=== PATIENT | female | born 1975 | race Hispanic/Latino ===

== ENCOUNTER 2017-02-16 13:52 | Inpatient (IN) | payer OTHER ==
[2017-02-16] MEDS ORDERED: Iohexol 240 (50 ml) PO ONE (14:17)
[2017-02-16] MEDS ORDERED: Lactated Ringer's 1,000 ML IV STA (14:21)
[2017-02-16] MEDS ORDERED: Iohexol 240 (50 ml) ONE (14:29)
[2017-02-16] MEDS ORDERED: Dextrose 5%/Lactated Ringer's 1,000 ML IV ONE (14:30)
--- NOTE | 2017-02-16 14:30 | ED PDOC ---
HPI: Abdomen Time Seen by Provider: 02/16/17 14:07 Chief Complaint (Nursing): Female Genitourinary Chief Complaint (Provider): abdominal pain History Per: Patient History/Exam Limitations: no limitations Onset/Duration Of Symptoms: Days (2), Gradual, Persistent Current Symptoms Are (Timing): Still Present Location Of Pain/Discomfort: Suprapubic Quality Of Discomfort: Cramping Associated Symptoms: Fever, Nausea, Loss Of Appetite. denies: Chills, Vomiting , Urinary Symptoms Exacerbating Factors: None Alleviating Factors: None Additional Complaint(s): Has been having vaginal bleeding since mid-December and also under recenterer care. However pain seemed to worsen over the last 2 days and advised to come to ER for further evaluation. Bleeding ~4-6 pad/day, waxes and wanes since December but also increased in last 2 days. No relief of pain. No urinary symptoms, diarrhea or constipation. No bleeding elsewhere. No lightheadedness. Past Medical History Reviewed: Historical Data, Nursing Documentation, Vital Signs Vital Signs: Last Vital Signs Temp 98 F 02/16/17 14:01 Pulse 112 H 02/16/17 14:01 Resp 18 02/16/17 14:01 BP 142/94 H 02/16/17 14:01 Pulse Ox 100 02/16/17 14:01 - Medical History Other PMH: Endometriosis - Surgical History Surgical History: Cholecystectomy (07/04) - Family History Family History: States: No Known Family Hx - Social History Current smoker - smoking cessation education provided: No Drugs: Denies - Allergies Allergies/Adverse Reactions: Allergies Allergy/AdvReac Type Severity Reaction Status Date / Time No Known Allergies Allergy Verified 02/16/17 14:00 Review of Systems ROS Statement: Except As Marked, All Systems Reviewed And Found Negative (and as per HPI) Gastrointestinal: Positive for: Nausea, Abdominal Pain. Negative for: Vomiting , Diarrhea, Constipation, Melena, Hematochezia Genitourinary Female: Positive for: Vaginal Bleeding, Pelvic Pain Physical Exam - Reviewed Nursing Documentation Reviewed: Yes Vital Signs Reviewed: Yes - Physical Exam Appears: Positive for: Non-toxic, In Acute Distress Head Exam: Positive for: ATRAUMATIC, NORMOCEPHALIC Skin: Positive for: Warm, Dry. Negative for: Pallor Eye Exam: Positive for: EOMI, PERRL ENT: Negative for: Pharyngeal Erythema, Tonsillar Exudate Neck: Positive for: Painless ROM, Supple Cardiovascular/Chest: Positive for: Regular Rate, Rhythm, Chest Non Tender. Negative for: Murmur Respiratory: Positive for: Normal Breath Sounds. Negative for: Respiratory Distress Gastrointestinal/Abdominal: Positive for: Bowel Sounds, Soft, Tenderness (BLQ and suprapubic). Negative for: Mass, Distended, Guarding, Rebound Back: Positive for: Normal Inspection. Negative for: L CVA Tenderness, R CVA Tenderness Extremity: Positive for: Normal ROM. Negative for: Deformity Neurologic/Psych: Positive for: Alert. Negative for: Motor/Sensory Deficits - ECG O2 Sat by Pulse Oximetry: 100 Pulse Ox Interpretation: Normal - Progress ED Course And Treament: DW Dr Martin Surgery resident who had d/w Dr Ragland, and Dr Shirley. Pt to have CT scan abd/pelv PO/IV contrast for possible appendicitis, colitis, proctitis, or other intestinal etiology for pain. Disposition - Clinical Impression Clinical Impression: Intractable abdominal pain - Disposition Disposition Time: 14:35 Condition: FAIR - Pt Status Changed To: Hospital Disposition Of: Inpatient - Admit Certification Admit to Inpatient:: After my assessment, the patient will require hospitalization for at least two midnights. This is because of the severity of symptoms shown, intensity of services needed, and/or the medical risk in this patient being treated as an outpatient. - POA Present On Arrival: None
[2017-02-16 14:47] LABS: BASO # 0.1 K/uL (0.0-0.2); EOS % 0.2 % (0.0-4.0); HEMATOCRIT 35.4 % (34.0-47.0); LYMPH # 2.6 K/uL (1.0-4.3); LYMPH % 32.8 % (20.0-40.0); MEAN CELL VOLUME 84.5 fl (81.0-99.0); MEAN CORPUSCULAR HEMOGLOBIN 28.3 pg (27.0-31.0); MEAN CORPUSCULAR HGB CONC 33.5 g/dL (33.0-37.0); MEAN PLATELET VOLUME 10.5 fl (7.2-11.7); MONO # 0.5 K/uL (0.0-0.8); MONO % 6.9 % (0.0-10.0); NEUT # 4.7 K/uL (1.8-7.0); NEUT % 59.1 % (50.0-75.0); RED CELL DISTRIBUTION WIDTH 12.9 % (11.5-14.5); WHITE BLOOD COUNT 7.9 K/uL (4.8-10.8)
[2017-02-16 14:55] LABS: RBC URINE 198 /hpf (0-3); URINE BACTERIA RARE (<OCC); URINE BILIRUBIN NEGATIVE (NEGATIVE); URINE COLOR YELLOW (YELLOW); URINE GLUCOSE (UA) NEG (Normal); URINE KETONE NEGATIVE (NEGATIVE); URINE LEUKOCYTE ESTERASE NEG Leu/uL (Negative); URINE PROTEIN NEGATIVE (NEGATIVE); URINE UROBILINOGEN 0.2-1.0 mg/dL (0.2-1.0); WBC URINE 2 /hpf (0-5)
[2017-02-16 15:02] LABS: PARTIAL THROMBOPLASTIN TIME 26.4 Seconds (25.6-37.1)
[2017-02-16 15:04] LABS: URINE BLOOD LARGE (NEGATIVE)
[2017-02-16 15:15] LABS: GLUCOSE,RANDOM 134 mg/dL (65-105)
[2017-02-16 15:16] LABS: ALB/GLOB RATIO 1.3 (1.0-2.1); ALKALINE PHOSPHATASE 36 U/L (38-126); ALT/SGPT 28 U/L (9-52); AST/SGOT 35 U/L (14-36); BILIRUBIN,TOTAL 0.3 mg/dl (0.2-1.3); BLOOD UREA NITROGEN 12 mg/dl (7-17); CALCIUM 9.6 mg/dL (8.4-10.2); CARBON DIOXIDE 22 mmol/L (22-30); CHLORIDE 108 mmol/L (98-107); GFR AFRICAN-AMERICAN > 60; POTASSIUM 3.7 MMOL/L (3.6-5.0); SODIUM 144 mmol/l (132-148); TOTAL PROTEIN 7.5 G/DL (6.3-8.2)
[2017-02-16] MEDS ORDERED: Peg-Electrolyte Oral Soln 4L (Golytely) PO ONE (15:30)
--- NOTE | 2017-02-16 16:29 | CP.PCM.HP ---
History of Present Illness - History of Present Illness History of Present Illness: Surgery: Dr. Ragland CC: worsening pelvic/abdominal pain HPI: Patient is a 41 y/o female w/ who presents w/ acute worsening of abdominal pain over the past 2 days. States she's had abdominal/pelvic pain in the past, for approximately 1 year time, however 2 days ago the pain became severe in nature and unrelenting. She reports consistent vaginal bleeding over the past year however she noticed that over the past couple of days the bleeding has increased. She is followed by [facility] as outpatient and states she has been consistent with her oral contraceptives which usually keep the bleeding to a minimum; however, bleeding has increased with large clots. She denies fever, chills. She reports nausea but no vomiting. She reports normal bowel movements. She denies vaginal discharge, dysuria, or hematuria. PMH: endometriosis, gallbladder disease PSH: dat morales Jun 2016 Social: , 2 children. Denies etoh, tobacco, or drug abuse Present on Admission - Present on Admission Any Indicators Present on Admission: No Review of Systems - Constitutional Constitutional: absent: Anorexia, Chills, Fever - EENT Eyes: absent: Blurred Vision, Change in Vision Nose/Mouth/Throat: absent: Nasal Congestion, Nose Pain - Cardiovascular Cardiovascular: absent: Chest Pain, Diaphoresis, Dyspnea - Respiratory Respiratory: absent: Cough, Wheezing - Gastrointestinal Gastrointestinal: Abdominal Pain, Nausea. absent: Constipation, Diarrhea, Vomiting - Genitourinary Genitourinary: absent: Dysuria, Pyuria - Reproductive: Female Reproductive:Female: Heavy Menses. absent: Vaginal Discharge, Vaginal Odor - Musculoskeletal Musculoskeletal: absent: Numbness, Tingling - Integumentary Integumentary: absent: Wounds, Jaundice - Neurological Neurological: absent: Dizziness, Weakness - Psychiatric Psychiatric: absent: Anxiety, Depression - Endocrine Endocrine: absent: Polydipsia, Polyphagia - Hematologic/Lymphatic Hematologic: absent: Easy Bruising Past Patient History - Past Social History Drugs: Denies - PSYCHIATRIC Hx Substance Use: No - SURGICAL HISTORY Hx Cholecystectomy: Yes (07/04) - ANESTHESIA Hx Anesthesia: No Meds Allergies/Adverse Reactions: Allergies Allergy/AdvReac Type Severity Reaction Status Date / Time No Known Allergies Allergy Verified 02/16/17 14:00 Physical Exam - Constitutional Appears: Non-toxic, No Acute Distress - Head Exam Head Exam: ATRAUMATIC, NORMOCEPHALIC - Eye Exam Eye Exam: EOMI, Normal appearance - ENT Exam ENT Exam: Mucous Membranes Moist - Respiratory Exam Respiratory Exam: NORMAL BREATHING PATTERN. absent: Respiratory Distress - Cardiovascular Exam Cardiovascular Exam: REGULAR RHYTHM. absent: Tachycardia - GI/Abdominal Exam GI & Abdominal Exam: Soft, Tenderness (suprapubic/lower abdominal tenderness). absent: Distended, Firm, Rebound Additional comments: fullness palpated suprapubic - Extremities Exam Extremities exam: Positive for: normal inspection. Negative for: calf tenderness - Neurological Exam Neurological exam: Alert, Oriented x3 - Psychiatric Exam Psychiatric exam: Normal Affect, Normal Mood - Skin Skin Exam: Dry, Normal Color Results - Vital Signs Recent Vital Signs: Last Vital Signs Temp 98 F 02/16/17 14:01 Pulse 112 H 02/16/17 14:01 Resp 18 02/16/17 14:01 BP 142/94 H 02/16/17 14:01 Pulse Ox 100 02/16/17 14:35 - Labs Result Diagrams: 02/16/17 14:40 02/16/17 14:40 Labs: Laboratory Results - last 24 hr 02/16/17 02/16/17 02/16/17 14:40 14:40 14:40 WBC 7.9 RBC 4.19 Hgb 11.9 L Hct 35.4 MCV 84.5 MCH 28.3 MCHC 33.5 RDW 12.9 Plt Count 231 MPV 10.5 Neut % (Auto) 59.1 Lymph % (Auto) 32.8 [place] % (Auto) 6.9 Eos % (Auto) 0.2 Baso % (Auto) 1.0 Neut # 4.7 Lymph # 2.6 [place] # 0.5 Eos # 0.0 Baso # 0.1 PT 11.8 INR 1.1 APTT 26.4 Sodium 144 Potassium 3.7 Chloride 108 H Carbon Dioxide 22 Anion Gap 18 BUN 12 Creatinine 0.7 Est GFR ( Amer) > 60 Est GFR (Non-Af Amer) > 60 Random Glucose 134 H Calcium 9.6 Total Bilirubin 0.3 AST 35 ALT 28 Alkaline Phosphatase 36 L Total Protein 7.5 Albumin 4.3 Globulin 3.2 Albumin/Globulin Ratio 1.3 Urine Color Urine Clarity Urine pH Ur Specific [place] Urine Protein Urine Glucose (UA) Urine Ketones Urine Blood Urine Nitrate Urine Bilirubin Urine Urobilinogen Ur Leukocyte Esterase Urine RBC (Auto) Urine Microscopic WBC Ur Squamous Epith Cells Urine Bacteria Blood Type Antibody Screen BBK History Checked 02/16/17 02/16/17 14:40 14:40 WBC RBC Hgb Hct MCV MCH MCHC RDW Plt Count MPV Neut % (Auto) Lymph % (Auto) [place] % (Auto) Eos % (Auto) Baso % (Auto) Neut # Lymph # [place] # Eos # Baso # PT INR APTT Sodium Potassium Chloride Carbon Dioxide Anion Gap BUN Creatinine Est GFR ( Amer) Est GFR (Non-Af Amer) Random Glucose Calcium Total Bilirubin AST ALT Alkaline Phosphatase Total Protein Albumin Globulin Albumin/Globulin Ratio Urine Color Yellow Urine Clarity Slighty-cloudy Urine pH 6.0 Ur Specific [place] 1.017 Urine Protein Negative Urine Glucose (UA) Neg Urine Ketones Negative Urine Blood Large Urine Nitrate Negative Urine Bilirubin Negative Urine Urobilinogen 0.2-1.0 Ur Leukocyte Esterase Neg Urine RBC (Auto) 198 H Urine Microscopic WBC 2 Ur Squamous Epith Cells 1 Urine Bacteria Rare Blood Type A POSITIVE Antibody Screen Negative BBK History Checked No verified bt Assessment & Plan - Assessment and Plan (Free Text) Assessment: 41 y/o female w/ abdominal pain and vaginal bleeding Plan: -f/u CT abd/pelvis w/ contrast -NPO -IVFs -am labs -pain control -further recs pending results -OOB -IS use -SCDs/Protonix -type/cross -[facility] consult -D/W Dr. Ellyn Cody PGY3
[2017-02-16] MEDS ORDERED: Iohexol 300 100 ML IJ ONE (17:01)
[2017-02-16] MEDS ORDERED: Sodium Chloride 0.9% 50 ML IV ONE (17:01)
--- NOTE | 2017-02-16 18:23 | CT ---
PROCEDURE: CT Abdomen and Pelvis with contrast HISTORY: Abdominal pain, vaginal pain. By history, negative test (concurrent with this examination). COMPARISON: None. TECHNIQUE: Contrast dose: 95 cc Omnipaque 300 Radiation dose: Total exam DLP = 569.03 mGy-cm. This CT exam was performed using one or more of the following dose reduction techniques: Automated exposure control, adjustment of the mA and/or kV according to patient size, and/or use of iterative reconstruction technique. FINDINGS: LOWER THORAX: Unremarkable. LIVER: Unremarkable. No gross lesion within the liver. Mild hepatic steatosis. . Mild ductal dilatation likely reflects post cholecystectomy state. GALLBLADDER AND BILE DUCTS: Status post cholecystectomy. No abnormality is seen in the gallbladder fossa. PANCREAS: Unremarkable. No gross lesion or ductal dilatation. SPLEEN: Unremarkable. ADRENALS: Unremarkable. No mass. KIDNEYS AND URETERS: Unremarkable. No hydronephrosis. No solid mass. VASCULATURE: Unremarkable. No aortic aneurysm. BOWEL: Constipation without fecal impaction or obstruction. APPENDIX: Normal appendix. PERITONEUM: Unremarkable. No free fluid. No free air. LYMPH NODES: Unremarkable. No enlarged lymph nodes. BLADDER: Unremarkable. REPRODUCTIVE: Anteverted uterus. Variable contrast enhancement of the anteverted uterus. This may represent myomatous process ease. Cystic adnexal masses occupying the large segments of the true pelvis. The cystic mass to the left of the midline measures 5.9 cm. The cystic mass or masses to the right of the midline measure 4.1 x 6.6 cm. BONES: No acute fracture. Mild scoliosis without appreciable secondary degenerative change OTHER FINDINGS: None. IMPRESSION: Multiple cystic masses in the pelvis described in greater detail above. Pelvic ultrasound strongly recommended given clinical presentation, symptomatology.
[2017-02-17 06:32] LABS: BASO # 0.1 K/uL (0.0-0.2); BASO % 0.8 % (0.0-2.0); EOS % 0.3 % (0.0-4.0); HEMATOCRIT 32.5 % (34.0-47.0); LYMPH # 2.8 K/uL (1.0-4.3); LYMPH % 36.8 % (20.0-40.0); MEAN CELL VOLUME 85.4 fl (81.0-99.0); MEAN CORPUSCULAR HEMOGLOBIN 27.9 pg (27.0-31.0); MEAN CORPUSCULAR HGB CONC 32.7 g/dL (33.0-37.0); MEAN PLATELET VOLUME 10.7 fl (7.2-11.7); MONO # 0.6 K/uL (0.0-0.8); MONO % 7.5 % (0.0-10.0); NEUT # 4.2 K/uL (1.8-7.0); NEUT % 54.6 % (50.0-75.0); RED CELL DISTRIBUTION WIDTH 12.7 % (11.5-14.5); WHITE BLOOD COUNT 7.7 K/uL (4.8-10.8)
[2017-02-17 06:34] LABS: ALB/GLOB RATIO 1.4 (1.0-2.1); ALKALINE PHOSPHATASE 33 U/L (38-126); ALT/SGPT 35 U/L (9-52); AST/SGOT 22 U/L (14-36); BILIRUBIN,TOTAL 0.4 mg/dl (0.2-1.3); BLOOD UREA NITROGEN 7 mg/dl (7-17); CALCIUM 8.9 mg/dL (8.4-10.2); CARBON DIOXIDE 25 mmol/L (22-30); CHLORIDE 107 mmol/L (98-107); GFR AFRICAN-AMERICAN > 60; GLUCOSE,RANDOM 108 mg/dL (65-105); POTASSIUM 3.5 MMOL/L (3.6-5.0); SODIUM 145 mmol/l (132-148); TOTAL PROTEIN 6.7 G/DL (6.3-8.2)
[2017-02-17] MEDS ORDERED: Lactated Ringer's 1,000 ML IV SCH ×2 (09:00→19:00)
[2017-02-17] MEDS ORDERED: Lactated Ringer's 500 ML IV SCH (12:00)
--- NOTE | 2017-02-17 12:39 | RAD ---
PROCEDURE: CHEST RADIOGRAPH, 1 VIEW HISTORY: pre-op eval COMPARISON: None available. FINDINGS: LUNGS: Clear. PLEURA: No pneumothorax or pleural fluid seen. CARDIOVASCULAR: Normal. OSSEOUS STRUCTURES: No significant abnormalities. VISUALIZED UPPER ABDOMEN: Normal. OTHER FINDINGS: None. IMPRESSION: No active disease.
[2017-02-17] MEDS ORDERED: Propofol 10 mg/ml Inj (20 ML) ONE (14:14)
[2017-02-17] MEDS ORDERED: ePHEDrine 50 mg/ml Inj ONE (14:14)
[2017-02-17] MEDS ORDERED: Succinylcholine 200 mg/10 ml Inj IV ONE (14:15)
[2017-02-17] MEDS ORDERED: Rocuronium 10 mg/ml (5 ml) ONE ×2 (14:15→16:01)
[2017-02-17] MEDS ORDERED: Bupivacaine 0.5% Inj(30mL) ONE (14:16)
[2017-02-17] MEDS ORDERED: Midazolam 2 MG/2 ML VIAL ONE (14:54)
[2017-02-17] MEDS ORDERED: Lactated Ringer's 1,000 ML IV ONE ×2 (14:55)
[2017-02-17] MEDS ORDERED: Sodium Chloride 0.9% 1,000 ML IV ONE ×2 (14:55→16:00)
[2017-02-17] MEDS ORDERED: Dexamethasone 4 mg/1 ml ONE (15:24)
[2017-02-17] MEDS ORDERED: Bupivacaine 0.5% 50 ML IJ ONE ×2 (15:28)
[2017-02-17] MEDS ORDERED: Lactated Ringer's 500 ML IV ONE (16:40)
[2017-02-17] MEDS ORDERED: Cellulose Hemostat 2X3 Sheet TP ONE (17:51)
[2017-02-17] MEDS ORDERED: HEMOSTATIC MATRIX 10 ML DIS.NEEDLE TOP ONE (17:52)
[2017-02-17] MEDS ORDERED: Neostigmine Methylsulfate 3mg/3ml Syringe IV ONE (18:08)
[2017-02-17] MEDS ORDERED: Desflurane Inhalation Anesthetic Liq (240 ml) ONE (18:19)
--- NOTE | 2017-02-17 18:41 | PCM.SURG1 ---
Surgeon's Initial Post Op Note - Surgeon's Notes Surgeon: Dr. Shirley, Dr. 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
[2017-02-17] MEDS ORDERED: HYDROmorphone 0.5 mg/0.5 ml ISec IVP PRN (18:49)
[2017-02-17] MEDS ORDERED: Naloxone 0.4 mg/ml Inj (Adult) IVP PRN (18:51)
[2017-02-17] MEDS ORDERED: DiphenhydrAMINE 50 mg/ml Inj IVP PRN (18:51)
--- NOTE | 2017-02-17 20:43 | CP.PCM.CON ---
History of Present Illness - History of Present Illness History of Present Illness: CC: Abdominal pain This is a 41-year-old female with a past medical history significant for endometriosis and gallbladder disease status post laparoscopic cholecystectomy on June 2016. She has been having vaginal bleeding since mid December along with 1 year of progressively worsening abdominal pain described as sharp and at times severe. Her pain seemed to worsen over the last 2 days and she was advised to come to the emergency department for further evaluation. The patient was worked up and found to have endometriosis. She was subsequently taken to the OR today 02/17/2017 for excision of retroperitoneal and pelvic endometriosis along with rectal endometriosis excision, and excision of sigmoid endometriosis. There is also excision of the left endometrioma of the left ovary. The patient was admitted to the ICU postoperatively after the procedure. She is on a Dilaudid IT ENGINEER for pain control as per anesthesia. She is hemodynamically stable at this time. Review of Systems - Review of Systems Systems not reviewed;Unavailable: Other (Sedated on dilaudid on IT ENGINEER pump) Past Patient History - Infectious Disease Hx of Infectious Diseases: None - Past Medical History & Family History Past Medical History?: Yes Past Family History: Reviewed and not pertinent - Past Social History Smoking Status: Never Smoked - MUSCULOSKELETAL/RHEUMATOLOGICAL Hx Falls: No - GASTROINTESTINAL Other/Comment: Gluten intolerance - GENITOURINARY/GYNECOLOGICAL Other/Comment: Endometriosis - PSYCHIATRIC Hx Anxiety: Yes Hx Substance Use: No - SURGICAL HISTORY Hx Cholecystectomy: Yes (07/04) Other/Comment: Lasex Sx to eyes - ANESTHESIA Hx Anesthesia: Yes Hx Anesthesia Reactions: No Meds Allergies/Adverse Reactions: Allergies Allergy/AdvReac Type Severity Reaction Status Date / Time No Known Allergies Allergy Verified 02/16/17 14:00 - Medications Medications: Current Medications Diphenhydramine HCl (Benadryl) 25 mg IVP Q6 PRN PRN Reason: Itching / Pruritus Enoxaparin Sodium (Lovenox) 40 mg SC DAILY [facility] PRN Reason: Protocol Hydromorphone HCl (Dilaudid) 0.5 mg IVP Q5M PRN PRN Reason: Pain, moderate (4-7) Stop: 02/17/17 20:49 Last Admin: 02/17/17 19:00 Dose: 0.5 mg Hydromorphone HCl (Dilaudid 0.2 Mg/Ml Nozzle Cement Sprayer Helper) 0 mg IV PRN PRN; Protocol PRN Reason: Pain, moderate (4-7) Last Admin: 02/17/17 19:30 Dose: 0.2 mg Lactated Ringer's (Lactated Ringer's) 1,000 mls @ 100 mls/hr IV .Q10H [facility] Lactated Ringer's (Lactated Ringer's 500ml) 500 mls @ 100 mls/hr IV .Q5H [facility] Morphine Sulfate (Morphine) 4 mg IVP Q4 PRN PRN Reason: Pain, severe (8-10) Morphine Sulfate (Morphine) 2 mg IVP Q4 PRN PRN Reason: Pain, moderate (4-7) Naloxone HCl (Narcan) 0.1 mg IVP Q2M PRN PRN Reason: Excess sedation Ondansetron HCl (Zofran Inj) 4 mg IVP Q4 PRN PRN Reason: Nausea/Vomiting Ondansetron HCl (Zofran Inj) 4 mg IVP Q8 PRN PRN Reason: Nausea/Vomiting Pantoprazole Sodium (Protonix Inj) 40 mg IVP DAILY [facility] Last Admin: 02/17/17 09:50 Dose: 40 mg Physical Exam - Additional Findings Additional findings: EXAM: Vitals stable and reviewed GEN: WDWN, alert, cooperative HEENT: NCAT, PERRL, EOMI Neck: supple, no lymphadenopathy CARDIO: +S1S2, RRR, NO M/R/G LUNG: CTAB, NO W/R/R ABD: soft, NT, ND, no masses, no HSM EXT: no edema, pedal pulses Neuro: arousable to voice, sedated, unable to perform full exam Results - Vital Signs Recent Vital Signs: Last Vital Signs Temp 98.2 F 02/17/17 20:02 Pulse 98 H 02/17/17 20:02 Resp 12 02/17/17 20:02 BP 116/63 02/17/17 20:02 Pulse Ox 100 02/17/17 20:02 - Labs Result Diagrams: 02/17/17 05:55 02/17/17 05:55 Labs: Laboratory Results - last 24 hr 02/16/17 02/17/17 02/17/17 14:40 05:55 05:55 WBC 7.7 RBC 3.80 Hgb 10.6 L Hct 32.5 L MCV 85.4 MCH 27.9 MCHC 32.7 L RDW 12.7 Plt Count 213 MPV 10.7 Neut % (Auto) 54.6 Lymph % (Auto) 36.8 [place] % (Auto) 7.5 Eos % (Auto) 0.3 Baso % (Auto) 0.8 Neut # 4.2 Lymph # 2.8 [place] # 0.6 Eos # 0.0 Baso # 0.1 PT INR APTT Sodium 145 Potassium 3.5 L Chloride 107 Carbon Dioxide 25 Anion Gap 17 BUN 7 Creatinine 0.7 Est GFR ( Amer) > 60 Est GFR (Non-Af Amer) > 60 Random Glucose 108 H Calcium 8.9 Total Bilirubin 0.4 AST 22 ALT 35 Alkaline Phosphatase 33 L Total Protein 6.7 Albumin 3.8 Globulin 2.8 Albumin/Globulin Ratio 1.4 Blood Type A POSITIVE Antibody Screen Negative Crossmatch See Detail BBK History Checked No verified bt 02/17/17 05:55 WBC RBC Hgb Hct MCV MCH MCHC RDW Plt Count MPV Neut % (Auto) Lymph % (Auto) [place] % (Auto) Eos % (Auto) Baso % (Auto) Neut # Lymph # [place] # Eos # Baso # PT 12.8 INR 1.2 APTT 26.0 Sodium Potassium Chloride Carbon Dioxide Anion Gap BUN Creatinine Est GFR ( Amer) Est GFR (Non-Af Amer) Random Glucose Calcium Total Bilirubin AST ALT Alkaline Phosphatase Total Protein Albumin Globulin Albumin/Globulin Ratio Blood Type Antibody Screen Crossmatch BBK History Checked Assessment & Plan - Assessment and Plan (Free Text) Assessment: Assessment - S/p endometriomal excision, hemodynamically stable in the ICU Plan - Monitor patient overnight in the ICU - Vitals as per protocol - Continue LR at 100 cc/hour - Continue Dilaudid IT ENGINEER pump as per anesthesia - Benadryl PRN for pruritis - Zofran PRN N/V - Naloxone 0.1 mg IVP q2m PRN excess sedation - Thank you for the consultation
[2017-02-17] MEDS ORDERED: ceFAZolin 1 GM in Sodium Chloride 0.9% 100 ML IVPB SCH (21:00)
[2017-02-17] MEDS: Lactated Ringer's 500 ML IV SCH (21:00)
--- NOTE | 2017-02-18 01:24 | CARD ---
APPROVED REPORT EKG Measurement Heart [id number] <Conclusion> Normal sinus rhythm Normal ECG
[2017-02-18] MEDS: Lactated Ringer's 500 ML IV SCH (02:00)
[2017-02-18] MEDS: ceFAZolin 1 GM in Sodium Chloride 0.9% 100 ML IVPB SCH ×2 (02:59→15:02)
[2017-02-18 05:22] LABS: BASO % 0.1 % (0.0-2.0); LYMPH # 0.9 K/uL (1.0-4.3); MEAN CELL VOLUME 85.6 fl (81.0-99.0); MEAN CORPUSCULAR HEMOGLOBIN 28.1 pg (27.0-31.0); MEAN CORPUSCULAR HGB CONC 32.8 g/dL (33.0-37.0); MEAN PLATELET VOLUME 10.6 fl (7.2-11.7); MONO # 0.9 K/uL (0.0-0.8); MONO % 6.9 % (0.0-10.0); NEUT # 10.8 K/uL (1.8-7.0); PLATELET COUNT 179 K/uL (130-400); RED CELL DISTRIBUTION WIDTH 12.7 % (11.5-14.5); WHITE BLOOD COUNT 12.5 K/uL (4.8-10.8)
[2017-02-18 05:24] LABS: ALKALINE PHOSPHATASE 27 U/L (38-126); ALT/SGPT 30 U/L (9-52); AST/SGOT 25 U/L (14-36); BILIRUBIN,TOTAL 0.2 mg/dl (0.2-1.3); BLOOD UREA NITROGEN 8 mg/dl (7-17); CALCIUM 8.1 mg/dL (8.4-10.2); CARBON DIOXIDE 21 mmol/L (22-30); CHLORIDE 109 mmol/L (98-107); GFR AFRICAN-AMERICAN > 60; GLUCOSE,RANDOM 142 mg/dL (65-105); POTASSIUM 3.7 MMOL/L (3.6-5.0); SODIUM 142 mmol/l (132-148); TOTAL PROTEIN 5.5 G/DL (6.3-8.2)
[2017-02-18 06:05] LABS: ALB/GLOB RATIO 1.2 (1.0-2.1)
[2017-02-18] MEDS ORDERED: Petrolatum UD PAK TOP PRN (08:36)
[2017-02-18] MEDS: Enoxaparin 40 mg Syringe SC SCH (08:42)
[2017-02-18 08:59] LABS: NEUTROPHIL 87 % (42-75); TOTAL CELLS COUNTED 100
[2017-02-18 09:00] LABS: LARGE PLATELETS PRESENT
--- NOTE | 2017-02-18 10:14 | CP.PCM.PN ---
Subjective - Date & Time of Evaluation Date of Evaluation: 02/18/17 Time of Evaluation: 07:15 - Subjective Subjective: General Surgery Pt S&E, NAEO. Afebrile. Pain controlled with meds. Good urine output. No N/V, no BM/flatus. Some mild tachycardia (100-110s) sporadically during night, otherwise VSS. Objective - Vital Signs/Intake and Output Vital Signs (last 24 hours): Temp Pulse Resp BP Pulse Ox 98.8 F 111 H 18 135/81 100 02/18/17 08:00 02/18/17 08:00 02/18/17 08:00 02/18/17 08:00 02/18/17 08:00 Intake and Output: 02/18/17 02/18/17 06:59 18:59 Intake Total 925 200 Output Total 225 Balance 700 200 - Medications Medications: Current Medications Diphenhydramine HCl (Benadryl) 25 mg IVP Q6 PRN PRN Reason: Itching / Pruritus Emollient Ointment (Vaseline Oint) 1 pkt TOP PRN PRN PRN Reason: Chapped lips Enoxaparin Sodium (Lovenox) 40 mg SC DAILY [facility] PRN Reason: Protocol Last Admin: 02/18/17 08:42 Dose: 40 mg Hydromorphone HCl (Dilaudid 0.2 Mg/Ml Ballast Regulator Operator) 0 mg IV PRN PRN; Protocol PRN Reason: Pain, moderate (4-7) Last Admin: 02/17/17 19:30 Dose: 0.2 mg Lactated Ringer's (Lactated Ringer's) 1,000 mls @ 100 mls/hr IV .Q10H [facility] Lactated Ringer's (Lactated Ringer's 500ml) 500 mls @ 100 mls/hr IV .Q5H [facility] Last Admin: 02/18/17 02:00 Dose: 100 mls/hr Cefazolin Sodium 1 gm/ Sodium (Chloride) 100 mls @ 100 mls/hr IVPB Q12H [facility] Stop: 02/18/17 15:59 Last Admin: 02/18/17 02:59 Dose: 100 mls/hr Morphine Sulfate (Morphine) 4 mg IVP Q4 PRN PRN Reason: Pain, severe (8-10) Morphine Sulfate (Morphine) 2 mg IVP Q4 PRN PRN Reason: Pain, moderate (4-7) Naloxone HCl (Narcan) 0.1 mg IVP Q2M PRN PRN Reason: Excess sedation Ondansetron HCl (Zofran Inj) 4 mg IVP Q4 PRN PRN Reason: Nausea/Vomiting Last Admin: 02/18/17 08:41 Dose: 4 mg Ondansetron HCl (Zofran Inj) 4 mg IVP Q8 PRN PRN Reason: Nausea/Vomiting Pantoprazole Sodium (Protonix Inj) 40 mg IVP DAILY [facility] Last Admin: 02/18/17 08:42 Dose: 40 mg - Labs Labs: 02/18/17 04:30 02/18/17 04:30 PT 12.8 Seconds (9.8-13.1) 02/17/17 05:55 INR 1.2 (0.9-1.2) 02/17/17 05:55 APTT 26.0 Seconds (25.6-37.1) 02/17/17 05:55 - Constitutional Appears: Non-toxic, No Acute Distress - Head Exam Head Exam: ATRAUMATIC, NORMOCEPHALIC - Eye Exam Eye Exam: EOMI. absent: Scleral icterus - ENT Exam ENT Exam: Mucous Membranes Dry Additional comments: trachea midline - Respiratory Exam Respiratory Exam: NORMAL BREATHING PATTERN. absent: Respiratory Distress - Cardiovascular Exam Cardiovascular Exam: Tachycardia, +S1, +S2 - GI/Abdominal Exam GI & Abdominal Exam: Soft, Tenderness (at incision site). absent: Distended, Firm, Guarding, Rigid Additional comments: Midline dressing with trace serosanguinous staining, dry, intact - Neurological Exam Neurological Exam: Alert, Awake - Skin Skin Exam: Dry, Warm Assessment and Plan - Assessment and Plan (Free Text) Assessment: 41F S/P Laparotomy, excision of retroperitoneal mass, b/l ureterolysis, excision of multiple rectal masses, repair of enterotomy, b/l ovarian cystectomy , myomectomy POD#1 Plan: DC'ed ihlls, good UOP Started CLD Pain control Monitor for bowel function Continue IVF Encouraged OOB/ambulation and IS use D/W Dr. Ellyn Quispe PGY4
--- NOTE | 2017-02-18 17:27 | CP.CCUPN ---
CCU Subjective - Physician Review Subjective (Free Text): Awake and alert, has been able to get OOB to chair, using IS; no CP, SOB at bed rest nor with exertion. HR did accelerate up to 120s ( sinus tachy), but not wholly associated with other symptoms. Other vitals and I/O's reviewed. No fever spikes noted last 48H. ROS: No other pertinent negs or positives on 10+ system review. PMSFH: All Nursing and physician documentation reviewed to date; no new pertinent info noted relevant to current medical problems. MAJOR PROBLEMS: 1. POD #1- S/P Emergent Laparotomy, Excision of Retroperitoneal Mass / multiple Rectal masses, B/L Ureterolysis, Enterotomy repair, Myomectomy and b/ l Ovarian Cystectomy PLAN: 1. Routine Post-op care as per Surgeons. 2. Fair tolerance to being OOB. 3. Watch for any excessive tachycardia. 4. IVF hydration. 5. Bloodwork results reviewed and at expected levels. CCU Objective - Vital Signs / Intake & Output Vital Signs (Last 4 hours): Vital Signs Pulse Resp BP Pulse Ox 02/18/17 14:00 102 H 12 129/77 100 Intake and Output (Last 8hrs): Intake & Output 02/18/17 02/18/17 02/18/17 06:59 14:59 22:59 Intake Total 600 1040 200 Output Total 120 100 Balance 600 920 100 Intake: IV 600 800 100 Oral 240 100 Output: Urine 120 100 Urethral ([place]) 120 100 Other: # Voids Urethral ([place]) 500 - Physical Exam Head: Positive for: Normocephalic Pupils: Positive for: PERRL Extroacular Muscles: Positive for: EOMI Conjunctiva: Positive for: Normal. Negative for: Injected Mouth: Positive for: Moist Mucous Membranes Neck: Negative for: JVD Respiratory/Chest: Positive for: Clear to Auscultation. Negative for: Accessory Muscle Use, Wheezes Cardiovascular: Positive for: Regular Rate and Rhythm, Tachycardic. Negative for: Murmurs, Rub Abdomen: Positive for: Distention, Other (BS not audible) Lower Extremity: Positive for: Edema, NORMAL PULSES. Negative for: CALF TENDERNESS, Cyanosis, Erythema Neurological: Positive for: GCS=15, CN II-XII Intact, Speech Normal, Motor Func Grossly Intact, Normal Sensory Function Skin: Positive for: Warm. Negative for: Rashes Psychiatric: Positive for: Alert, Oriented x 3, Normal Insight, Normal Concentration - Medications Active Medications: Active Medications Generic Name Dose Route Start Last Admin Trade Name Freq PRN Reason Stop Dose Admin Acetaminophen 975 mg 02/18/17 17:00 02/18/17 16:42 Tylenol 325mg Tab PO 975 mg Q8 [facility] Administration Alprazolam 0.25 mg 02/18/17 15:38 Xanax PO 02/25/17 15:39 Q12 PRN Anxiety Diphenhydramine HCl 25 mg 02/17/17 18:51 Benadryl IVP Q6 PRN Itching / Pruritus Emollient Ointment 1 pkt 02/18/17 08:36 Vaseline Oint TOP PRN PRN Chapped lips Enoxaparin Sodium 40 mg 02/18/17 09:00 02/18/17 08:42 Lovenox SC 40 mg DAILY [facility] Administration Protocol Hydromorphone HCl 0 mg 02/17/17 18:51 02/17/17 19:30 Dilaudid 0.2 Mg/Ml Ratings Analyst IV 0.2 mg PRN PRN Administration Pain, moderate (4-7) Protocol Sodium Chloride 1,000 mls @ 50 mls/hr 02/18/17 15:45 Sodium Chloride 0.9% IV 02/19/17 15:39 .Q20H [facility] Naloxone HCl 0.1 mg 02/17/17 18:51 Narcan IVP Q2M PRN Excess sedation Ondansetron HCl 4 mg 02/17/17 18:51 Zofran Inj IVP Q8 PRN Nausea/Vomiting Pantoprazole Sodium 40 mg 02/17/17 09:00 02/18/17 08:42 Protonix Inj IVP 40 mg DAILY [facility] Administration - Patient Studies Lab Studies: Microbiology Studies 02/16/17 14:55 Blood Culture - Preliminary Blood-Venous NO GROWTH AFTER 48 HOURS 02/16/17 14:40 Blood Culture - Preliminary Blood-Venous NO GROWTH AFTER 48 HOURS Lab Studies 02/18/17 02/18/17 Range/Units 04:30 04:30 WBC 12.5 H D (4.8-10.8) K/uL RBC 3.15 L (3.80-5.20) Mil/uL Hgb 8.8 L (12.0-16.0) g/dL Hct 27.0 L (34.0-47.0) % MCV 85.6 (81.0-99.0) fl MCH 28.1 (27.0-31.0) pg MCHC 32.8 L (33.0-37.0) g/dL RDW 12.7 (11.5-14.5) % Plt Count 179 (130-400) K/uL MPV 10.6 (7.2-11.7) fl Neut % (Auto) 86.0 H (50.0-75.0) % Lymph % (Auto) 7.0 L (20.0-40.0) % [place] % (Auto) 6.9 (0.0-10.0) % Eos % (Auto) 0.0 (0.0-4.0) % Baso % (Auto) 0.1 (0.0-2.0) % Neut # 10.8 H (1.8-7.0) K/uL Lymph # 0.9 L (1.0-4.3) K/uL [place] # 0.9 H (0.0-0.8) K/uL Eos # 0.0 (0.0-0.7) K/uL Baso # 0.0 (0.0-0.2) K/uL Neutrophils % (Manual) 87 H (42-75) % Band Neutrophils % 1 (0-2) % Lymphocytes % (Manual) 6 L (20-50) % Monocytes % (Manual) 6 (0-10) % Toxic Granulation Present Platelet Estimate Normal (NORMAL) Large Platelets Present Hypochromasia (manual) Slight Sodium 142 (132-148) mmol/l Potassium 3.7 (3.6-5.0) MMOL/L Chloride 109 H (98-107) mmol/L Carbon Dioxide 21 L (22-30) mmol/L Anion Gap 16 (10-20) BUN 8 (7-17) mg/dl Creatinine 0.6 L (0.7-1.2) mg/dL Est GFR ( Amer) > 60 Est GFR (Non-Af Amer) > 60 Random Glucose 142 H (65-105) mg/dL Calcium 8.1 L (8.4-10.2) mg/dL Total Bilirubin 0.2 (0.2-1.3) mg/dl AST 25 (14-36) U/L ALT 30 (9-52) U/L Alkaline Phosphatase 27 L (38-126) U/L Total Protein 5.5 L (6.3-8.2) G/DL Albumin 2.9 L D (3.5-5.0) g/dL Globulin 2.5 (2.2-3.9) gm/dL Albumin/Globulin Ratio 1.2 (1.0-2.1) Laboratory Results - last 24 hr 02/18/17 02/18/17 04:30 04:30 WBC 12.5 H D RBC 3.15 L Hgb 8.8 L Hct 27.0 L MCV 85.6 MCH 28.1 MCHC 32.8 L RDW 12.7 Plt Count 179 MPV 10.6 Neut % (Auto) 86.0 H Lymph % (Auto) 7.0 L [place] % (Auto) 6.9 Eos % (Auto) 0.0 Baso % (Auto) 0.1 Neut # 10.8 H Lymph # 0.9 L [place] # 0.9 H Eos # 0.0 Baso # 0.0 Neutrophils % (Manual) 87 H Band Neutrophils % 1 Lymphocytes % (Manual) 6 L Monocytes % (Manual) 6 Toxic Granulation Present Platelet Estimate Normal Large Platelets Present Hypochromasia (manual) Slight Sodium 142 Potassium 3.7 Chloride 109 H Carbon Dioxide 21 L Anion Gap 16 BUN 8 Creatinine 0.6 L Est GFR ( Amer) > 60 Est GFR (Non-Af Amer) > 60 Random Glucose 142 H Calcium 8.1 L Total Bilirubin 0.2 AST 25 ALT 30 Alkaline Phosphatase 27 L Total Protein 5.5 L Albumin 2.9 L D Globulin 2.5 Albumin/Globulin Ratio 1.2 Critical Care Progress Note - Nutrition Nutrition: Nutrition Category Date Time Status Liquid Diet [DIET] Diets 02/18/17 Breakfast Active
[2017-02-18 19:31] LABS: MEAN CELL VOLUME 85.7 fl (81.0-99.0); MEAN CORPUSCULAR HEMOGLOBIN 27.7 pg (27.0-31.0); MEAN CORPUSCULAR HGB CONC 32.4 g/dL (33.0-37.0); RED CELL DISTRIBUTION WIDTH 12.8 % (11.5-14.5); WHITE BLOOD COUNT 12.5 K/uL (4.8-10.8)
[2017-02-19] MEDS: Sodium Chloride 0.9% 1,000 ML IV SCH (04:08)
[2017-02-19 05:29] LABS: BASO % 0.3 % (0.0-2.0); EOS % 0.2 % (0.0-4.0); HEMATOCRIT 23.2 % (34.0-47.0); LYMPH # 2.3 K/uL (1.0-4.3); LYMPH % 24.2 % (20.0-40.0); MEAN CELL VOLUME 85.9 fl (81.0-99.0); MEAN CORPUSCULAR HEMOGLOBIN 28.5 pg (27.0-31.0); MEAN CORPUSCULAR HGB CONC 33.2 g/dL (33.0-37.0); MEAN PLATELET VOLUME 10.8 fl (7.2-11.7); MONO # 0.8 K/uL (0.0-0.8); MONO % 8.1 % (0.0-10.0); NEUT # 6.3 K/uL (1.8-7.0); NEUT % 67.2 % (50.0-75.0); RED CELL DISTRIBUTION WIDTH 13.1 % (11.5-14.5); WHITE BLOOD COUNT 9.3 K/uL (4.8-10.8)
[2017-02-19 05:32] LABS: ALB/GLOB RATIO 1.1 (1.0-2.1); ALKALINE PHOSPHATASE 28 U/L (38-126); ALT/SGPT 34 U/L (9-52); AST/SGOT 59 U/L (14-36); BILIRUBIN,TOTAL 0.3 mg/dl (0.2-1.3); BLOOD UREA NITROGEN 12 mg/dl (7-17); CALCIUM 8.2 mg/dL (8.4-10.2); CARBON DIOXIDE 26 mmol/L (22-30); CHLORIDE 106 mmol/L (98-107); GFR AFRICAN-AMERICAN > 60; GLUCOSE,RANDOM 103 mg/dL (65-105); POTASSIUM 3.6 MMOL/L (3.6-5.0); SODIUM 138 mmol/l (132-148); TOTAL PROTEIN 5.4 G/DL (6.3-8.2)
[2017-02-19] MEDS ORDERED: Oxycodone/Acetaminophen 5/325 mg Tab PO PRN (09:02)
[2017-02-19] MEDS: Enoxaparin 40 mg Syringe SC SCH (10:37)
[2017-02-19] MEDS ORDERED: oxyCODONE 5 mg Immediate Release Tab PO PRN (11:24)
--- NOTE | 2017-02-19 11:31 | CP.PCM.PN ---
Subjective - Date & Time of Evaluation Date of Evaluation: 02/19/17 Time of Evaluation: 09:45 - Subjective Subjective: General Surgery Pt S&E, NAEO. Afebrile. Pain controlled with mostly with tylenol. Mild nausea about 1 hr after eating broth. No BM/flatus. Mild tachycardia (100-110s) overnight, otherwise VSS. Still with vaginal bleeding today. Objective - Vital Signs/Intake and Output Vital Signs (last 24 hours): Temp Pulse Resp BP Pulse Ox 98.9 F 104 H 15 127/76 100 02/19/17 08:00 02/19/17 08:00 02/19/17 08:00 02/19/17 08:00 02/19/17 08:00 Intake and Output: 02/19/17 02/19/17 06:59 18:59 Intake Total 700 Output Total 600 Balance 100 - Medications Medications: Current Medications Acetaminophen (Tylenol 325mg Tab) 975 mg PO Q8 [facility] Last Admin: 02/19/17 09:09 Dose: 975 mg Alprazolam (Xanax) 0.25 mg PO Q12 PRN PRN Reason: Anxiety Stop: 02/25/17 15:39 Last Admin: 02/19/17 10:37 Dose: 0.25 mg Diphenhydramine HCl (Benadryl) 25 mg IVP Q6 PRN PRN Reason: Itching / Pruritus Docusate Sodium (Colace) 100 mg PO BID [facility] Emollient Ointment (Vaseline Oint) 1 pkt TOP PRN PRN PRN Reason: Chapped lips Enoxaparin Sodium (Lovenox) 40 mg SC DAILY [facility] PRN Reason: Protocol Last Admin: 02/19/17 10:37 Dose: 40 mg Sodium Chloride (Sodium Chloride 0.9%) 1,000 mls @ 50 mls/hr IV .Q20H [facility] Stop: 02/19/17 15:39 Last Admin: 02/19/17 04:08 Dose: 50 mls/hr Ketorolac Tromethamine (Toradol) 30 mg IVP Q6 [facility] Last Admin: 02/19/17 10:39 Dose: 30 mg Naloxone HCl (Narcan) 0.1 mg IVP Q2M PRN PRN Reason: Excess sedation Ondansetron HCl (Zofran Inj) 4 mg IVP Q8 PRN PRN Reason: Nausea/Vomiting Last Admin: 02/19/17 09:49 Dose: 4 mg Oxycodone HCl (Oxycodone Immediate Release Tab) 5 mg PO Q6 PRN PRN Reason: Pain, severe (8-10) Pantoprazole Sodium (Protonix Inj) 40 mg IVP DAILY [facility] Last Admin: 02/19/17 09:06 Dose: 40 mg - Labs Labs: 02/19/17 04:15 02/19/17 04:15 PT 12.8 Seconds (9.8-13.1) 02/17/17 05:55 INR 1.2 (0.9-1.2) 02/17/17 05:55 APTT 26.0 Seconds (25.6-37.1) 02/17/17 05:55 - Constitutional Appears: Non-toxic, No Acute Distress - Head Exam Head Exam: ATRAUMATIC, NORMOCEPHALIC - Eye Exam Eye Exam: EOMI. absent: Scleral icterus - Respiratory Exam Respiratory Exam: NORMAL BREATHING PATTERN. absent: Respiratory Distress - Cardiovascular Exam Cardiovascular Exam: Tachycardia, +S1, +S2 - GI/Abdominal Exam GI & Abdominal Exam: Soft, Tenderness (mild at incision site). absent: Distended, Firm, Guarding, Rigid Additional comments: dressing D/I - Neurological Exam Neurological Exam: Alert, Awake - Skin Skin Exam: Dry, Warm Assessment and Plan - Assessment and Plan (Free Text) Assessment: 41F S/P Laparotomy, excision of retroperitoneal mass, b/l ureterolysis, excision of multiple rectal masses, repair of enterotomy, b/l ovarian cystectomy , myomectomy POD#2 Plan: Tolerating CLD Pain control, oxycodone for breakthough Monitor for bowel function Continue IVF Encouraged OOB/ambulation and IS use Colace D/W Dr. Ellyn Quispe PGY4
--- NOTE | 2017-02-19 18:46 | CP.PCM.PN ---
Subjective - Date & Time of Evaluation Date of Evaluation: 02/17/17 Time of Evaluation: 19:00 - Subjective Subjective: patient is pos op surgery had laparotomy with extensive excicision of endometriosis and significant blood loss blodd loss Objective - Vital Signs/Intake and Output Vital Signs (last 24 hours): Temp Pulse Resp BP Pulse Ox 98.8 F 111 H 22 134/83 98 02/19/17 17:00 02/19/17 17:00 02/19/17 17:00 02/19/17 17:00 02/19/17 17:00 Intake and Output: 02/19/17 02/19/17 06:59 18:59 Intake Total 700 1105 Output Total 600 Balance 100 1105 - Medications Medications: Current Medications Acetaminophen (Tylenol 325mg Tab) 975 mg PO Q8 [facility] Last Admin: 02/19/17 18:05 Dose: Not Given Alprazolam (Xanax) 0.25 mg PO Q12 PRN PRN Reason: Anxiety Stop: 02/25/17 15:39 Last Admin: 02/19/17 10:37 Dose: 0.25 mg Diphenhydramine HCl (Benadryl) 25 mg IVP Q6 PRN PRN Reason: Itching / Pruritus Docusate Sodium (Colace) 100 mg PO BID [facility] Last Admin: 02/19/17 18:00 Dose: 100 mg Emollient Ointment (Vaseline Oint) 1 pkt TOP PRN PRN PRN Reason: Chapped lips Enoxaparin Sodium (Lovenox) 40 mg SC DAILY [facility] PRN Reason: Protocol Last Admin: 02/19/17 10:37 Dose: 40 mg Escitalopram Oxalate (Lexapro) 10 mg PO HS [facility] Ketorolac Tromethamine (Toradol) 30 mg IVP Q6 [facility] Last Admin: 02/19/17 15:59 Dose: 30 mg Naloxone HCl (Narcan) 0.1 mg IVP Q2M PRN PRN Reason: Excess sedation Ondansetron HCl (Zofran Inj) 4 mg IVP Q8 PRN PRN Reason: Nausea/Vomiting Last Admin: 02/19/17 09:49 Dose: 4 mg Oxycodone HCl (Oxycodone Immediate Release Tab) 5 mg PO Q6 PRN PRN Reason: Pain, severe (8-10) Pantoprazole Sodium (Protonix Inj) 40 mg IVP DAILY [facility] Last Admin: 02/19/17 09:06 Dose: 40 mg - Labs Labs: 02/19/17 04:15 02/19/17 04:15 PT 12.8 Seconds (9.8-13.1) 02/17/17 05:55 INR 1.2 (0.9-1.2) 02/17/17 05:55 APTT 26.0 Seconds (25.6-37.1) 02/17/17 05:55 Assessment and Plan - Assessment and Plan (Free Text) Assessment: gpost op laparotomy significant lenght of surghery and complecity of operation Plan: will admit directlty to [facility]
--- NOTE | 2017-02-19 18:48 | CP.PCM.PN ---
Subjective - Date & Time of Evaluation Date of Evaluation: 02/19/17 Time of Evaluation: 12:00 - Subjective Subjective: pod #2 feeling some palpitations otherwise doing well taking po Objective - Vital Signs/Intake and Output Vital Signs (last 24 hours): Temp Pulse Resp BP Pulse Ox 98.8 F 111 H 22 134/83 98 02/19/17 17:00 02/19/17 17:00 02/19/17 17:00 02/19/17 17:00 02/19/17 17:00 Intake and Output: 02/19/17 02/19/17 06:59 18:59 Intake Total 700 1105 Output Total 600 Balance 100 1105 - Medications Medications: Current Medications Acetaminophen (Tylenol 325mg Tab) 975 mg PO Q8 [facility] Last Admin: 02/19/17 18:05 Dose: Not Given Alprazolam (Xanax) 0.25 mg PO Q12 PRN PRN Reason: Anxiety Stop: 02/25/17 15:39 Last Admin: 02/19/17 10:37 Dose: 0.25 mg Diphenhydramine HCl (Benadryl) 25 mg IVP Q6 PRN PRN Reason: Itching / Pruritus Docusate Sodium (Colace) 100 mg PO BID [facility] Last Admin: 02/19/17 18:00 Dose: 100 mg Emollient Ointment (Vaseline Oint) 1 pkt TOP PRN PRN PRN Reason: Chapped lips Enoxaparin Sodium (Lovenox) 40 mg SC DAILY [facility] PRN Reason: Protocol Last Admin: 02/19/17 10:37 Dose: 40 mg Escitalopram Oxalate (Lexapro) 10 mg PO [facility] Ketorolac Tromethamine (Toradol) 30 mg IVP Q6 [facility] Last Admin: 02/19/17 15:59 Dose: 30 mg Naloxone HCl (Narcan) 0.1 mg IVP Q2M PRN PRN Reason: Excess sedation Ondansetron HCl (Zofran Inj) 4 mg IVP Q8 PRN PRN Reason: Nausea/Vomiting Last Admin: 02/19/17 09:49 Dose: 4 mg Oxycodone HCl (Oxycodone Immediate Release Tab) 5 mg PO Q6 PRN PRN Reason: Pain, severe (8-10) Pantoprazole Sodium (Protonix Inj) 40 mg IVP DAILY [facility] Last Admin: 02/19/17 09:06 Dose: 40 mg - Labs Labs: 02/19/17 04:15 02/19/17 04:15 PT 12.8 Seconds (9.8-13.1) 02/17/17 05:55 INR 1.2 (0.9-1.2) 02/17/17 05:55 APTT 26.0 Seconds (25.6-37.1) 02/17/17 05:55 - Constitutional Appears: Well - GI/Abdominal Exam GI & Abdominal Exam: Soft Assessment and Plan - Assessment and Plan (Free Text) Assessment: stable pod#2 Plan: will move out of [facility] meds for anxiety repeat cbc in am
[2017-02-20] MEDS: Sodium Chloride 0.9% 1,000 ML IV SCH ×2 (00:33→18:01)
[2017-02-20 05:58] LABS: BASO % 0.4 % (0.0-2.0); BLOOD UREA NITROGEN 11 mg/dl (7-17); CALCIUM 8.1 mg/dL (8.4-10.2); CARBON DIOXIDE 24 mmol/L (22-30); CHLORIDE 108 mmol/L (98-107); EOS % 0.1 % (0.0-4.0); GFR AFRICAN-AMERICAN > 60; GLUCOSE,RANDOM 91 mg/dL (65-105); HEMATOCRIT 20.2 % (34.0-47.0); LYMPH # 1.8 K/uL (1.0-4.3); LYMPH % 21.1 % (20.0-40.0); MEAN CELL VOLUME 85.5 fl (81.0-99.0); MEAN CORPUSCULAR HEMOGLOBIN 28.7 pg (27.0-31.0); MEAN CORPUSCULAR HGB CONC 33.6 g/dL (33.0-37.0); MEAN PLATELET VOLUME 10.5 fl (7.2-11.7); MONO # 0.5 K/uL (0.0-0.8); NEUT # 6.3 K/uL (1.8-7.0); NEUT % 72.4 % (50.0-75.0); POTASSIUM 3.4 MMOL/L (3.6-5.0); RED CELL DISTRIBUTION WIDTH 12.9 % (11.5-14.5); SODIUM 143 mmol/l (132-148); WHITE BLOOD COUNT 8.7 K/uL (4.8-10.8)
[2017-02-20] MEDS: Enoxaparin 40 mg Syringe SC SCH (08:11)
--- NOTE | 2017-02-20 09:13 | CP.PCM.PN ---
Subjective - Date & Time of Evaluation Date of Evaluation: 02/20/17 Time of Evaluation: 07:15 - Subjective Subjective: General Surgery Pt S&E, NAEO. Afebrile. Pain controlled with tylenol. Mild nausea with toradol. + BM/flatus. Tolerating liquids. Mild tachycardia (100-110s) overnight, otherwise VSS. Still with minimal vaginal bleeding, clots in toilet. Objective - Vital Signs/Intake and Output Vital Signs (last 24 hours): Temp Pulse Resp BP Pulse Ox 97.8 F 95 H 20 138/74 97 02/20/17 08:53 02/20/17 08:53 02/20/17 08:53 02/20/17 08:53 02/20/17 08:53 - Medications Medications: Current Medications Acetaminophen (Tylenol 325mg Tab) 975 mg PO Q8 [facility] Last Admin: 02/20/17 08:17 Dose: 975 mg Alprazolam (Xanax) 0.25 mg PO Q12 PRN PRN Reason: Anxiety Stop: 02/25/17 15:39 Last Admin: 02/20/17 08:12 Dose: 0.25 mg Diphenhydramine HCl (Benadryl) 25 mg IVP Q6 PRN PRN Reason: Itching / Pruritus Docusate Sodium (Colace) 100 mg PO BID [facility] Last Admin: 02/20/17 08:11 Dose: 100 mg Emollient Ointment (Vaseline Oint) 1 pkt TOP PRN PRN PRN Reason: Chapped lips Enoxaparin Sodium (Lovenox) 40 mg SC DAILY [facility] PRN Reason: Protocol Last Admin: 02/20/17 08:11 Dose: 40 mg Escitalopram Oxalate (Lexapro) 10 mg PO HS [facility] Last Admin: 02/19/17 21:46 Dose: 10 mg Naloxone HCl (Narcan) 0.1 mg IVP Q2M PRN PRN Reason: Excess sedation Ondansetron HCl (Zofran Inj) 4 mg IVP Q4 PRN PRN Reason: Nausea/Vomiting Last Admin: 02/20/17 05:35 Dose: 4 mg Oxycodone HCl (Oxycodone Immediate Release Tab) 5 mg PO Q6 PRN PRN Reason: Pain, severe (8-10) Pantoprazole Sodium (Protonix Inj) 40 mg IVP DAILY [facility] Last Admin: 02/20/17 08:13 Dose: 40 mg - Labs Labs: 02/20/17 05:15 02/20/17 05:15 PT 12.8 Seconds (9.8-13.1) 02/17/17 05:55 INR 1.2 (0.9-1.2) 02/17/17 05:55 APTT 26.0 Seconds (25.6-37.1) 02/17/17 05:55 - Constitutional Appears: Non-toxic, No Acute Distress - Head Exam Head Exam: ATRAUMATIC, NORMOCEPHALIC - Respiratory Exam Respiratory Exam: NORMAL BREATHING PATTERN. absent: Respiratory Distress - Cardiovascular Exam Cardiovascular Exam: Tachycardia, +S1, +S2 - GI/Abdominal Exam GI & Abdominal Exam: Soft, Tenderness (mild at incision). absent: Distended - Neurological Exam Neurological Exam: Alert, Awake, Oriented x3 - Skin Skin Exam: Dry, Warm Assessment and Plan - Assessment and Plan (Free Text) Assessment: 41F S/P Laparotomy, excision of retroperitoneal mass, b/l ureterolysis, excision of multiple rectal masses, repair of enterotomy, b/l ovarian cystectomy , myomectomy POD#3 Plan: 2 units PRBCs for transfusion today Tolerating CLD Pain control with tylenol. Canceled toradol, oxycodone for breakthough Encouraged OOB/ambulation and IS use AM labs Lexapro started yesterday D/W Dr. Ellyn Quispe PGY4
--- NOTE | 2017-02-20 18:27 | CP.PCM.PN ---
Subjective - Date & Time of Evaluation Date of Evaluation: 02/20/17 Time of Evaluation: 18:25 - Subjective Subjective: pod #3 received 2 prbc today tdue to symptomatic postoperative anemia feeling better had bm Objective - Vital Signs/Intake and Output Vital Signs (last 24 hours): Temp Pulse Resp BP Pulse Ox 99.0 F 84 16 140/84 99 02/20/17 16:50 02/20/17 16:50 02/20/17 16:50 02/20/17 16:50 02/20/17 16:50 Intake and Output: 02/20/17 02/20/17 06:59 18:59 Intake Total 665 Balance 665 - Medications Medications: Current Medications Acetaminophen (Tylenol 325mg Tab) 975 mg PO Q8 [facility] Last Admin: 02/20/17 16:32 Dose: 975 mg Alprazolam (Xanax) 0.25 mg PO Q12 PRN PRN Reason: Anxiety Stop: 02/25/17 15:39 Last Admin: 02/20/17 08:12 Dose: 0.25 mg Diphenhydramine HCl (Benadryl) 25 mg IVP Q6 PRN PRN Reason: Itching / Pruritus Docusate Sodium (Colace) 100 mg PO BID [facility] Last Admin: 02/20/17 16:35 Dose: Not Given Emollient Ointment (Vaseline Oint) 1 pkt TOP PRN PRN PRN Reason: Chapped lips Enoxaparin Sodium (Lovenox) 40 mg SC DAILY [facility] PRN Reason: Protocol Last Admin: 02/20/17 08:11 Dose: 40 mg Escitalopram Oxalate (Lexapro) 10 mg PO HS [facility] Last Admin: 02/19/17 21:46 Dose: 10 mg Naloxone HCl (Narcan) 0.1 mg IVP Q2M PRN PRN Reason: Excess sedation Ondansetron HCl (Zofran Inj) 4 mg IVP Q4 PRN PRN Reason: Nausea/Vomiting Last Admin: 02/20/17 15:03 Dose: 4 mg Oxycodone HCl (Oxycodone Immediate Release Tab) 5 mg PO Q6 PRN PRN Reason: Pain, severe (8-10) Pantoprazole Sodium (Protonix Ec Tab) 40 mg PO DAILY [facility] - Labs Labs: 02/20/17 05:15 02/20/17 05:15 PT 12.8 Seconds (9.8-13.1) 02/17/17 05:55 INR 1.2 (0.9-1.2) 02/17/17 05:55 APTT 26.0 Seconds (25.6-37.1) 02/17/17 05:55 - GI/Abdominal Exam GI & Abdominal Exam: Soft, Normal Bowel Sounds Assessment and Plan - Assessment and Plan (Free Text) Assessment: progressing well pod1 Plan: adv diet in am
--- NOTE | 2017-02-21 06:02 | CP.PCM.PN ---
Subjective - Date & Time of Evaluation Date of Evaluation: 02/21/17 Time of Evaluation: 05:30 - Subjective Subjective: General Surgery Pt S&E, NAEO. Afebrile. Pain controlled with tylenol. + BM/flatus. Tolerating liquids. Having nausea intermittently. Wants to have more filling food. Objective - Vital Signs/Intake and Output Vital Signs (last 24 hours): Temp Pulse Resp BP Pulse Ox 98.4 F 98 H 18 137/82 99 02/21/17 00:19 02/21/17 00:19 02/21/17 00:19 02/21/17 00:19 02/21/17 00:19 Intake and Output: 02/20/17 02/21/17 18:59 06:59 Intake Total 665 Balance 665 - Medications Medications: Current Medications Acetaminophen (Tylenol 325mg Tab) 975 mg PO Q8 [facility] Last Admin: 02/20/17 16:32 Dose: 975 mg Alprazolam (Xanax) 0.25 mg PO Q12 PRN PRN Reason: Anxiety Stop: 02/25/17 15:39 Last Admin: 02/20/17 22:58 Dose: 0.25 mg Diphenhydramine HCl (Benadryl) 25 mg IVP Q6 PRN PRN Reason: Itching / Pruritus Docusate Sodium (Colace) 100 mg PO BID [facility] Last Admin: 02/20/17 16:35 Dose: Not Given Emollient Ointment (Vaseline Oint) 1 pkt TOP PRN PRN PRN Reason: Chapped lips Enoxaparin Sodium (Lovenox) 40 mg SC DAILY [facility] PRN Reason: Protocol Last Admin: 02/20/17 08:11 Dose: 40 mg Escitalopram Oxalate (Lexapro) 10 mg PO HS [facility] Last Admin: 02/20/17 22:00 Dose: Not Given Naloxone HCl (Narcan) 0.1 mg IVP Q2M PRN PRN Reason: Excess sedation Ondansetron HCl (Zofran Inj) 4 mg IVP Q4 PRN PRN Reason: Nausea/Vomiting Last Admin: 02/20/17 22:58 Dose: 4 mg Oxycodone HCl (Oxycodone Immediate Release Tab) 5 mg PO Q6 PRN PRN Reason: Pain, severe (8-10) Pantoprazole Sodium (Protonix Ec Tab) 40 mg PO DAILY [facility] - Labs Labs: 02/20/17 05:15 02/20/17 05:15 PT 12.8 Seconds (9.8-13.1) 02/17/17 05:55 INR 1.2 (0.9-1.2) 02/17/17 05:55 APTT 26.0 Seconds (25.6-37.1) 02/17/17 05:55 - Constitutional Appears: Non-toxic, No Acute Distress - Head Exam Head Exam: ATRAUMATIC, NORMOCEPHALIC - Eye Exam Eye Exam: EOMI. absent: Scleral icterus - Respiratory Exam Respiratory Exam: NORMAL BREATHING PATTERN. absent: Respiratory Distress - GI/Abdominal Exam GI & Abdominal Exam: Soft, Tenderness (mild at incision). absent: Distended, Firm, Guarding, Rigid Additional comments: incision C/D/I - Neurological Exam Neurological Exam: Alert, Awake, Oriented x3 - Skin Skin Exam: Dry, Warm Assessment and Plan - Assessment and Plan (Free Text) Assessment: 41F S/P Laparotomy, excision of retroperitoneal mass, b/l ureterolysis, excision of multiple rectal masses, repair of enterotomy, b/l ovarian cystectomy , myomectomy POD#4 Plan: Tolerating CLD will advance to soft for breakfast and regular for lunch Pain control with tylenol. Oxycodone for breakthough Encouraged OOB/ambulation and IS use F/U AM labs Dressing removed advised pt she can place dressing if she feels her incision is getting irritated by clothing. Will D/W Dr. Ellyn Quispe PGY4
[2017-02-21 06:30] VITALS: RESP 20
[2017-02-21 07:38] LABS: BASO % 0.5 % (0.0-2.0); EOS % 0.6 % (0.0-4.0); LYMPH # 1.6 K/uL (1.0-4.3); LYMPH % 21.8 % (20.0-40.0); MEAN CELL VOLUME 84.4 fl (81.0-99.0); MEAN CORPUSCULAR HEMOGLOBIN 28.8 pg (27.0-31.0); MEAN CORPUSCULAR HGB CONC 34.1 g/dL (33.0-37.0); MEAN PLATELET VOLUME 9.9 fl (7.2-11.7); MONO # 0.4 K/uL (0.0-0.8); MONO % 6.3 % (0.0-10.0); NEUT # 5.1 K/uL (1.8-7.0); NEUT % 70.8 % (50.0-75.0); NRBC % 0.1 % (0.0-0.0); RED CELL DISTRIBUTION WIDTH 13.2 % (11.5-14.5); WHITE BLOOD COUNT 7.2 K/uL (4.8-10.8)
[2017-02-21 07:42] LABS: BLOOD UREA NITROGEN 13 mg/dl (7-17); CALCIUM 8.1 mg/dL (8.4-10.2); CARBON DIOXIDE 23 mmol/L (22-30); CHLORIDE 110 mmol/L (98-107); GFR AFRICAN-AMERICAN > 60; GLUCOSE,RANDOM 93 mg/dL (65-105); POTASSIUM 3.2 MMOL/L (3.6-5.0); SODIUM 142 mmol/l (132-148)
[2017-02-21] MEDS ORDERED: Potassium Chloride 20 mEq ER Tab PO ONE (08:05)
[2017-02-21] MEDS: Enoxaparin 40 mg Syringe SC SCH (08:58)
[2017-02-21] MEDS ORDERED: Pantoprazole 40 mg EC Tab PO SCH (09:00)
[2017-02-21 12:56] VITALS: BP 143/74; PULSE 97; TEMP 98.6; O2SAT 100
--- NOTE | 2017-03-03 19:38 | OP ---
PROCEDURE DATE: 02/17/2017 SURGEON: Daniel Shirley MD. LINOLEUM LAYER HELPER: Saul Ragland MD from General Surgery. PREOPERATIVE DIAGNOSES: Acute pelvic pain with signs of partial bowel obstruction and heavy vaginal bleeding. POSTOPERATIVE DIAGNOSES: Severe abdominopelvic adhesions, stage IV endometriosis, large retroperitoneal masses, and uterine fibroid. PROCEDURES: Emergency laparotomy with lysis of adhesions, excision of endometriosis, ureterolysis, excision of left retroperitoneal mass, ovarian cystectomy, left salpingectomy, and myomectomy. There is a separate surgical procedure performed by Dr. Ragland, which involved excision of bowel masses, which he will dictate separately. SAMPLES: Multiple samples sent to Pathology including samples of retroperitoneal mass, multiple peritoneal endometriosis samples, left ovarian endometrioma, uterine fibroid, and multiple bowel masses. COMPLICATIONS: None. ESTIMATED BLOOD LOSS: 500 mL. INDICATION FOR THE PROCEDURE: The patient was admitte emergently the night prior to the procedure with extensive pelvic pain and severe bleeding. She was evaluated by Emergency Room and General Surgery. Imaging revealed the presence of a large pelvic mass that appeared to be retroperitoneal as well as extensive bowel adhesions. Given the patient's severity of symptoms in consultation with General Surgery, the patient was taken to the OR after signing her consent. DESCRIPTION OF PROCEDURE: After entering the abdominal cavityvia laparotomy , which will be separately dictated by Dr. Ragland from General Surgery, we encountered extremely extensive adhesions involving the large bowel as well as the small bowel, as well as a very large left peritoneal mass, which basically extended from the upper pelvic brim all the way deep into the left perirectal space. The first part of the surgery involved the dissection of extensive adhesions involving the bowel. It was quite clear that the mass was related to endometriosis as the patient had also a history of it. Dr. Ragland from General Surgery will dictated the bowel part of this procedure. The first part of the procedure involved identifying the ureter on the left hand side, which was not visible and not palpable, so we went up on the pelvic brim and a dissection was performed, opened the peritoneum and progressively dissecting the ureter all the way down from the pelvic brim all the way down to under and beyond the mass. Similarly, on the right hand side, the ureter again was identified of the pelvic brim and completely dissected off all the way down from the pelvic brim all the way down to the uterine vessels and they were both tagged with a band. At this point, after this was done, a progressive dissection was performed. Abundant chocolate-type fluid came out of the pelvis and it was immediately aspirated. This was an extensive dissection, which finally allowed us to elevate the mass and remove it. It appeared to be a complex mass involving both ovary and fallopian tube on the left hand side. An excision of the mass was performed in a [id number] fashion with extreme attention to preserve the hypogastric nerves bilaterally. This was sent to pathology. It appeared to be both an endometrioma and a fallopian tube on the left hand side. At this point, attention was on the uterus itself, which had been finally dissected off. The imaging had revealed that the patient has a very large fibroid in submucous position, so an incision was made in the uterus. The fibroid was progressively dissected out and taken out, and sent to Pathology. The incision was then repaired in layers utilizing 2-0 Vicryl. Again, extensive dissection was then performed posteriorly dissecting the bowel from the posterior aspect of the uterus and opening up the rectovaginal space. Once this was all freed, Dr. Ragland from General Surgery proceeded with extensive excision of colorectal endometriosis, a procedure that he will dictate separately. At this point, abundant irrigation was used to irrigate the pelvis, integrity of the bowel was again verified, and all potential lesions and serosal tears were repaired. The abdomen was then closed in layers with a mass closure of 0 PDS. The skin was closed with subcuticular closure. The patient was woken up and taken to the recovery room in excellent condition. At the end of the procedure, all tapes and instruments counts were correct. Daniel Shirley MD MTDJina
--- NOTE | 2017-03-19 23:48 | PCM.OP ---
Operative Report - Operative Report Date of Surgery/Procedure: 02/16/17 Time of Surgery/Procedure: 08:00 Surgeon: Dr. Saul Ragland Gaming Worker: Dr. Daniel Shirley Anesthesia/Sedation: general/Dr. Sapp Pre-Operative Diagnosis: abdominal pain/endometriosis Post-Operative Diagnosis: perirectal endometriosis Indication for Surgery: as above Operative Findings: mulrtiple areas of narendra-rectal endometriosis Procedure/Operation Description: 1-Excision mulitple (two) narendra-rectal endometriosis. Brief History: Dr. Casper arredondo already intiated the robotic procedure when he noted multiple areas of narendra-rectal endometriosis. He obtained an intraoperative general surgery consultation and this is the report of the procedure. Description of the procedure: Dr. Lorena arredondo already initiated the robotic procedure (separate dictation Dr. Carrillo). After taking control of the robotic console the rectum was examined and two areas of narendra- rectal invovlement were indentified. Using sharp dissection with the aid of electrocauery the lesion was dissected circumferentially and excised en-bloc. This first specimen was marked and sent to p[athology separately. The other lesion was excised in a similar manner and sent to atphology separately as well. Hemostasis was examined and deemed adeqaute. The operation was then turned over to Dr. Carrillo (>separate dictation Dr. Shirley). Estimated Blood Loss: 5 cc Complications: none Discharge & Condition: stable
== END 2017-02-21 15:30 | disposition home or self-care (01) | DRG 742 ==
LOC: H.ER 13:52 → H.ERHOLD 14:21 → H.MEDSURG1 17:25 → H.ICU/CCU 02-17 20:01 → H.PEDS 02-19 14:18
PROVIDERS: ADMIT Surgery; ATTEND Surgery
PROC: 0TN70ZZ Release Left Ureter, Open Approach (ICD-10-PCS; 2017-02-17)
PROC: 0DNW0ZZ Release Peritoneum, Open Approach (ICD-10-PCS; 2017-02-17)
PROC: 0U5B0ZZ Destruction of Endometrium, Open Approach (ICD-10-PCS; 2017-02-17)
PROC: 8E0W0CZ Robotic Assisted Procedure of Trunk Region, Open Approach (ICD-10-PCS; 2017-02-17)
PROC: 0UB90ZZ Excision of Uterus, Open Approach (ICD-10-PCS; principal; 2017-02-17 13:00)
PROC: 0UT60ZZ Resection of Left Fallopian Tube, Open Approach (ICD-10-PCS; 2017-02-17 13:00)
PROC: 0UB10ZZ Excision of Left Ovary, Open Approach (ICD-10-PCS; 2017-02-17 13:00)
DX: D25.0 Submucous leiomyoma of uterus (principal); K56.609 Unspecified intestinal obstruction, unspecified as to partial versus complete obstruction; K90.41 Non-celiac gluten sensitivity; N80.3 Endometriosis of pelvic peritoneum; N80.1 Endometriosis of ovary; N80.5 Endometriosis of intestine; N73.6 Female pelvic peritoneal adhesions (postinfective); D64.9 Anemia, unspecified; Z90.49 Acquired absence of other specified parts of digestive tract; F41.9 Anxiety disorder, unspecified; R00.0 Tachycardia, unspecified; R00.2 Palpitations; R10.2 Pelvic and perineal pain